=== PATIENT | female | born 1960 | race Caucasian/White ===

== ENCOUNTER 2017-06-01 13:57 | Emergency (ER) | payer OTHER ==
[2017-06-01 14:41] LABS: BASOPHILS % 0.9 (0.0-1.5); EOSINOPHILS % 2.3 % (0.0-6.8); MEAN CORPUSCULAR HEMOGLOBIN 26.9 pg (28.0-34.0); MEAN CORPUSCULAR VOLUME 83.8 fl (80.0-100.0); MONOCYTES % 4.7 % (0.0-11.0); NEUTROPHILS # 3.7 # k/uL (1.4-7.7)
[2017-06-01 14:58] LABS: eGFR (African) > 60; eGFR (Non-African) > 60
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
[2017-06-01] MEDS: IBUPROFEN 200 MG TABLET PO ONE (15:50)
[2017-06-01] MEDS: DEXAMETHASONE SOD PHOS 4 MG/ML VIAL IM ONE (15:50)
[2017-06-01 16:02] VITALS: BP 125/63
--- NOTE | 2017-06-01 16:55 | Diagnostic Imaging Report ---
[facility] [address] [address] Report Submission Date: Jun 01, 2017 3:01:37 PM CDT Patient Study Name: REGINE MONTILLA Date: Jun 01, 2017 2:37:08 PM CDT Modality Type: CR Gender: F Description: CHEST : 58 Institution: [facility] Physician: SABRA DAY - ER Examination: PA and lateral chest. History: Evaluate lung monahan. Comparison exam none available Findings: PA lateral chest demonstrate a normal cardiac silhouette. Mild tortuosity of thoracic aorta with vascular calcifications projecting over the aortic arch. Sternotomy wires. Chronic appearing interstitial changes. No focal infiltrate. No blunting of the costophrenic margins. Osseous structures are appropriate for age. Impression: Chronic appearing interstitial changes. No acute pulmonary process. Electronically signed on Jun 01, 2017 3:01:37 PM CDT by: Jamari JIMÉNEZ
--- NOTE | 2017-06-01 16:56 | Diagnostic Imaging Report ---
[facility] [address] [facility] [place], [place]. [address] Report Submission Date: Jun 01, 2017 3:15:45 PM CDT Patient Study Name: REGINE MONTILLA Date: Jun 01, 2017 2:34:01 PM CDT Modality Type: CT\SR Gender: F Description: CT BRAIN W/O CONTRAST : 58 Institution: [facility] Physician: SABRA DAY - TYESHA Examination: CT head without contrast History: Headache Comparison exam: None available for direct review Technique: Noncontrast head CT protocol. Findings: Ventricles and sulci are prominent. Cerebrocerebellar parenchyma demonstrates periventricular low attenuation consistent with small vessel disease. Region of low attenuation extending anteriorly from the left ventricle anterior horn. Mild bilateral anterior horn periventricular low attenuation. No evidence for parenchymal hemorrhage. No evidence for mass or mass effect. No midline shift. No extra axial fluid collections. Partial visualization of the paranasal sinuses, mastoid air cells, orbits, skull and scalp without gross regularity. Impression: Advanced age related changes. Regions of periventricular low attenuation consistent with ischemic events - exact chronicity indeterminate without older studies, though likely chronic. No hemorrhage. Correlation with previous examinations is recommended to help determine the exact chronicity of the parenchymal abnormalities. If prior studies do not become available and there still high clinical concern for an acute ischemic event, consider obtaining MRI. Electronically signed on Jun 01, 2017 3:15:45 PM CDT by: Jamari JIMÉNEZ
== END 2017-06-01 16:03 | disposition home or self-care (01) ==
LOC: EDSTATUS 13:57 → ED 13:57
DX: G43.809 Other migraine, not intractable, without status migrainosus (principal); R41.0 Disorientation, unspecified
CPT/HCPCS: 70450; 71020; 80053; 85025; 85610; 85730; 93005; J1100; 96372; 99283; S1016

== ENCOUNTER 2017-06-30 13:20 | Emergency (ER) | payer OTHER ==
--- NOTE | 2017-06-30 13:40 | ED Physician Documentation ---
Female Urogenital Problems - HISTORIAN Historian: patient - HPI Chief Complaint: Female Urogenital Problems Additional Information: 3 day history of dysuria, mild hematuria, having some urgency and frequency. No fever or chills noted. Is having constant pain in the suprapubic area. Onset: days ago (3 days) Severity: moderate - Associated Symptoms Urinary Symptoms: blood in urine, frequent urination, discomfort w/ urination, burning w/ urination, urgency w/ urination, pain w/ urination - ROS CONST: none. denies: fever, chills GI/: denies: nausea, vomiting - PAST HX Past History: other (CAD, Pelvic floor muscle spasms, ) Surgeries/Procedures: appendectomy, other (CABG of 3 vessles) Immunizations: referred to PCP Allergies/Adverse Reactions: Allergies Allergy/AdvReac Type Severity Reaction Status Date / Time strawberry Allergy Unknown Verified 06/30/17 13:50 bee venom (honey bee) Allergy Verified 06/30/17 13:50 Sulfa (Sulfonamide AdvReac Severe Anaphylaxis Verified 06/30/17 13:50 Antibiotics) contrast dye Allergy Unknown Uncoded 06/30/17 13:50 Home Medications: Ambulatory Orders Medication Instructions Recorded Albuterol Sulfate [Proair HFA] 1 each D 02/22/15 Aspirin [Polo] 81 mg D 02/22/15 Atorvastatin Calcium [Lipitor] 80 mg PO D 02/22/15 Clopidogrel Bisulfate [Plavix] 75 mg PO D 02/22/15 Nitroglycerin [Nitrostat] 0.4 mg PRN PRN 02/22/15 Oxybutynin Chloride [Ditropan] 10 mg PO BID 02/22/15 Venlafaxine HCl [Effexor Xr] 150 mg D 02/22/15 traZODone HCL [Desyrel] 150 mg PO HS 02/22/15 Hydroxyzine Pamoate [Vistaril] 25 mg PO QDAY 06/01/17 Naproxen [Naprosyn] 500 mg PO PRN 06/01/17 Pantoprazole Sodium [Protonix] 40 mg PO 0700 06/01/17 Trazodone HCl 50 mg PO TID #90 tablet 06/01/17 Venlafaxine HCl [Effexor Xr] 37.5 mg PO QDAY 06/01/17 Nitrofurantoin Monohyd/M-Cryst 100 mg PO CMEAL #10 capsule 06/30/17 [Macrobid] - SOCIAL HX Smoking History: quit greater than 1 year (quit 3 years ago, was smoking 1 1/2- 2 ppd) Alcohol Use: occasionally Drug Use: none - FAMILY HX Family History: none - VITAL SIGNS Vital Signs: Vital Signs Temp Pulse Resp BP Pulse Ox 125/63 06/01/17 16:01 Progress - Progress Progress: Patient was informed that her symptoms are very consistent with UTI however urine does not look that bad. Will get a urine culture and start antibiotics. Patient advised that if symptoms do not get better she needs to be further evaluated. Female Urogenital Problems - EXAM General Appearance: alert, mild distress Neck: nml inspection Respiratory: no resp. distress, breath sounds nml. No: wheezes, rales, rhonchi CVS: reg rate & rhythm, heart sounds normal, equal pulses, no murmur Abdomen: no organomegaly, no distention, nml bowel sounds, tenderness (mild tenderness in the RLL and suprapubic area). No: guarding, rebound, hepatomegaly Neuro: oriented X3, mood/affect nml, cognition normal Discharge Clincal Impression: Urinary tract infection Qualifiers: Urinary tract infection type: acute cystitis Hematuria presence: without hematuria Qualified Code(s): N30.00 - Acute cystitis without hematuria Referrals: Christiano Trinidad MD [Primary Care Provider] - 2 Days Additional Instructions: Drink a lot of fluids, Take MacroBid 100mg one tablet twice a day for 5 days . IF you start to run a high fever, have some increase pain or any other problems to return to the ED for further evaluation. Condition: Stable Disposition: 01 HOME, SELF-CARE Decision to Admit: NO Date of Decison to Admit: 06/30/17 Decision Time: 13:49
[2017-06-30 13:47] LABS: APPEARANCE,URINE CLEAR (CLEAR); COLOR,URINE ORANGE (YELLOW); OCCULT BLOOD,URINE TRACE-INTACT (NEGATIVE); UROBILINOGEN URINE 0.2 Eu (0.2-1.0)
[2017-06-30 13:50] VITALS: BP 119/72
== END 2017-06-30 14:15 | disposition home or self-care (01) ==
LOC: ED 13:20
DX: N30.00 Acute cystitis without hematuria (principal)
CPT/HCPCS: 81002; 87086; 99283

== ENCOUNTER 2017-12-24 13:28 | Emergency (ER) | payer OTHER ==
[2017-12-24] MEDS ORDERED: BUTORPHANOL TARTRATE 2 MG/ML VIAL IV ONE (14:03)
[2017-12-24] MEDS ORDERED: ONDANSETRON HCL/PF 4 MG/ 2ML VIAL IVP ONE (14:04)
--- NOTE | 2017-12-24 14:17 | ED Physician Documentation ---
General Adult - HISTORIAN Historian: patient, child - HPI Stated Complaint: LLQ pain Chief Complaint: General Adult Additional Information: LLQ pain that radiates to L flank began yesterday. Pain is intermittent and also waxes and wanes. Feels like previous kidney stones (15). - ROS CONST: denies: fever - PAST HX Past History: hypertension, other (kidney stones [id number]; 50+ pound unintentional weight loss since May w/ loss appetite and regurgitation/ vomiting) Other History: other (depression, Holt's esophagitis) Surgeries/Procedures: cardiac bypass (stwentsx3), other (appy, ortho) Allergies/Adverse Reactions: Allergies Allergy/AdvReac Type Severity Reaction Status Date / Time strawberry Allergy Unknown Verified 12/24/17 14:34 venom-honey bee Allergy Verified 12/24/17 14:34 [bee venom (honey bee)] Sulfa (Sulfonamide AdvReac Severe Anaphylaxis Verified 12/24/17 14:34 Antibiotics) contrast dye Allergy Unknown Uncoded 12/24/17 14:34 Home Medications: Ambulatory Orders Medication Instructions Recorded Albuterol Sulfate [Proair HFA] 1 each D 02/22/15 Aspirin [Polo] 81 mg D 02/22/15 Atorvastatin Calcium [Lipitor] 80 mg PO D 02/22/15 Clopidogrel Bisulfate [Plavix] 75 mg PO D 02/22/15 Nitroglycerin [Nitrostat] 0.4 mg PRN PRN 02/22/15 Oxybutynin Chloride [Ditropan] 10 mg PO BID 02/22/15 traZODone HCL [Desyrel] 150 mg PO HS 02/22/15 Hydroxyzine Pamoate [Vistaril] 25 mg PO QDAY 06/01/17 Naproxen [Naprosyn] 500 mg PO PRN 06/01/17 Pantoprazole Sodium [Protonix] 40 mg PO 0700 06/01/17 Trazodone HCl 50 mg PO TID #90 tablet 06/01/17 - SOCIAL HX Smoking History: non-smoker - FAMILY HX Family History: No - VITAL SIGNS Vital Signs: Vital Signs Temp Pulse Resp BP Pulse Ox 119/72 06/30/17 14:15 Progress - Progress Progress: Name: REGINE MONTILLA Date: Dec 24, 2017 2:28:43 PM CDT Modality Type: CT\SR Gender: F Description: CT ABD PELVIS W/O CO : 58 Institution: [facility] Physician: CHRISTIANO ROGERS - ER Examination: CT Abdomen/pelvis History: CT A/P W/O, LEFT SIDED FLANK AND LOWER ABDOMINAL PAIN X2 DAYS, WORSENING TODAY (Hx) Comparison exams: None available Technique: CT Abdomen/pelvis without contrast protocol. Findings: Renal cortical margins are symmetric. Small right calyceal calcification. 4 mm inferior calyx calcification left kidney. Mild dilation of the left ureter in its course through the abdomen and pelvis. No central calcification. Just within the bladder at the left ureterovesicular junction is a 4 mm calcification. Few smaller calcifications layering within the posterior margin of the bladder. No abnormal dilation of the right ureter. No central calcification. Bladder partially decompressed. Liver, spleen, adrenals, gallbladder and pancreas are without gross irregularity given exam technique. No gallstone. Abdominal aorta demonstrates peripheral atherosclerotic disease. No overt aneurysm. Cardiac silhouette not enlarged. No pericardial effusion. Vascular calcifications. Bowel unopacified limiting evaluation. No mesenteric inflammatory changes or free fluid. No abnormal bowel dilation. Stool within the large bowel. Sigmoid diverticula. Notation inflammation. Osseous structures demonstrate degenerative changes. Lung bases demonstrate bibasilar hazy infiltrates, left greater than right. No gross effusion. Impression: 4 mm calcification just within the bladder at the left ureterovesicular junction with residual dilation of the left ureter - likely representing recently passed ureterolithiasis. Bilateral nephrolithiasis. No acute upper abdominal organ inflammatory process. No abnormal bowel dilation. Sigmoid diverticulosis. No evidence for acute diverticulitis. No gallstone. Left greater than right lung base infiltrates without gross effusion. Electronically signed on Dec 24, 2017 3:04:48 PM CDT by: Jamari Bettencourt ED Results Lab/Radiology - Orders Orders: ED Orders Category Date Time Status Place IV Lock 1T Care 12/24/17 13:[address] ABD & PELVIS W/O CON Stat Exams 12/24/17 Ordered CBC/PLATELET/DIFF Routine Lab 12/24/17 Ordered CMP Routine Lab 12/24/17 Ordered URINALYSIS Routine Lab 12/24/17 Ordered Butorphanol Tartrate [Stadol] Med 12/24/17 14:03 Discontinued 2 mg IV NOW ONE Ondansetron HCl/Pf [Zofran 4 mg/2 ml] Med 12/24/17 14:04 Discontinued 4 mg IVP NOW ONE General Adult Physical Exam - PHYSICAL EXAM GENERAL APPEARANCE: no distress EENT: eye inspection normal (disconjugate positions), ENT inspection normal NECK: normal inspection, supple RESPIRATORY: no resp distress, breath sounds normal, other (well healed sternotomy scar) CVS: reg rate & rhythm, heart sounds normal ABDOMEN: soft, normal bowel sounds, no distension, non-tender BACK: normal inspection, no CVA tenderness, other (no vertebral tenderness) SKIN: warm/dry, normal color EXTREMITIES: non-tender, no evidence of injury NEURO: CN's nml as tested, motor nml, sensation nml Discharge Clincal Impression: Kidney stone on left side Referrals: Christiano Trinidad MD [Primary Care Provider] - 2 Days Additional Instructions: Drink plenty of water. Follow up with your provider as needed. Condition: Good Disposition: 01 HOME, SELF-CARE Decision to Admit: NO Decision Time: 15:10
[2017-12-24 14:34] VITALS: BP 138/71
[2017-12-24 15:06] LABS: BASOPHILS % 0.4 (0.0-1.5); MEAN CORPUSCULAR HEMOGLOBIN 27.5 pg (28.0-34.0); MEAN CORPUSCULAR VOLUME 88.3 fl (80.0-100.0)
[2017-12-24] MEDS ORDERED: KETOROLAC TROMETHAMINE 30 MG/1ML VIAL IVP ONE (15:08)
[2017-12-24 15:10] LABS: EOSINOPHILS % 0.6 % (0.0-6.8); MONOCYTES % 0.4 % (0.0-11.0); NEUTROPHILS # 4.1 # k/uL (1.4-7.7)
[2017-12-24] MEDS ORDERED: ORPHENADRINE CITRATE 60 MG/2ML ONE (15:14)
[2017-12-24] MEDS ORDERED: ORPHENADRINE CITRATE 60 MG/2ML IV ONE (15:17)
[2017-12-24 15:23] LABS: eGFR (African) > 60; eGFR (Non-African) > 60
--- NOTE | 2017-12-24 18:23 | Diagnostic Imaging Report ---
CHRISTIANO ROGERS [facility] [address] [facility] [address] [place], [place]. [address] Report Submission Date: Dec 24, 2017 3:04:48 PM CDT Patient Study Name: REGINE MONTILLA Date: Dec 24, 2017 2:28:43 PM CDT Modality Type: CT\SR Gender: F Description: CT ABD PELVIS W/O CO : 58 Institution: [facility] Physician: CHRISTIANO ROGERS Examination: CT Abdomen/pelvis History: CT A/P W/O, LEFT SIDED FLANK AND LOWER ABDOMINAL PAIN X2 DAYS, WORSENING TODAY (Hx) Comparison exams: None available Technique: CT Abdomen/pelvis without contrast protocol. Findings: Renal cortical margins are symmetric. Small right calyceal calcification. 4 mm inferior calyx calcification left kidney. Mild dilation of the left ureter in its course through the abdomen and pelvis. No central calcification. Just within the bladder at the left ureterovesicular junction is a 4 mm calcification. Few smaller calcifications layering within the posterior margin of the bladder. No abnormal dilation of the right ureter. No central calcification. Bladder partially decompressed. Liver, spleen, adrenals, gallbladder and pancreas are without gross irregularity given exam technique. No gallstone. Abdominal aorta demonstrates peripheral atherosclerotic disease. No overt aneurysm. Cardiac silhouette not enlarged. No pericardial effusion. Vascular calcifications. Bowel unopacified limiting evaluation. No mesenteric inflammatory changes or free fluid. No abnormal bowel dilation. Stool within the large bowel. Sigmoid diverticula. Notation inflammation. Osseous structures demonstrate degenerative changes. Lung bases demonstrate bibasilar hazy infiltrates, left greater than right. No gross effusion. Impression: 4 mm calcification just within the bladder at the left ureterovesicular junction with residual dilation of the left ureter - likely representing recently passed ureterolithiasis. Bilateral nephrolithiasis. No acute upper abdominal organ inflammatory process. No abnormal bowel dilation. Sigmoid diverticulosis. No evidence for acute diverticulitis. No gallstone. Left greater than right lung base infiltrates without gross effusion. Electronically signed on Dec 24, 2017 3:04:48 PM CDT by: Jamari JIMÉNEZ
== END 2017-12-24 15:20 | disposition home or self-care (01) ==
LOC: ED 13:28
DX: N20.0 Calculus of kidney (principal)
CPT/HCPCS: 74176; 80053; 85025; J0595; J2360; J2405; 96374; 96375; 99283; S1016

== ENCOUNTER 2018-01-15 13:19 | Emergency (ER) | payer OTHER ==
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
[2018-01-15 14:37] VITALS: BP 138/71
== END 2018-01-15 14:35 | disposition home or self-care (01) ==
LOC: ED 13:19
DX: M25.561 Pain in right knee (principal); S83.91XA Sprain of unspecified site of right knee, initial encounter; Z87.828 Personal history of other (healed) physical injury and trauma; X58.XXXA Exposure to other specified factors, initial encounter; Y92.9 Unspecified place or not applicable; Y93.9 Activity, unspecified; Y99.9 Unspecified external cause status
CPT/HCPCS: 99282

== ENCOUNTER 2018-03-20 11:16 | Emergency (ER) | payer OTHER ==
[2018-03-20 11:31] VITALS: BP 114/74
--- NOTE | 2018-03-20 11:37 | ED Physician Documentation ---
General Adult - HISTORIAN Historian: patient - HPI Stated Complaint: Right Sided Back Pain Chief Complaint: Flank Pain Onset: days ago (2) Timing: still present Severity: mild Further Comments: yes (She states she has had right CVA tenderness for a few days. No blood in urine. She has not tried any OTC meds. She does have some urinary urgency. No fever. no N/V/D.) Last known Well Code/Unknown Code: Unknown - ROS CONST: denies: fever, recent illness, weakness EYES/ENT: none CVS/RESP: none GI/: problems urinating. denies: vomiting, nausea MS/SKIN/LYMPH: denies: rash NEURO/PSYCH: denies: headache, fainting, dizziness - PAST HX Past History: other (depression ) Immunizations: referred to PCP Allergies/Adverse Reactions: Allergies Allergy/AdvReac Type Severity Reaction Status Date / Time strawberry Allergy Unknown Verified 03/20/18 11:31 venom-honey bee Allergy Verified 03/20/18 11:31 [bee venom (honey bee)] Sulfa (Sulfonamide AdvReac Severe Anaphylaxis Verified 03/20/18 11:31 Antibiotics) contrast dye Allergy Unknown Uncoded 03/20/18 11:31 Home Medications: Ambulatory Orders Medication Instructions Recorded Albuterol Sulfate [Proair HFA] 1 each IH Q6 PRN 02/22/15 Atorvastatin Calcium [Lipitor] 80 mg PO HS 02/22/15 Clopidogrel Bisulfate [Plavix] 75 mg PO HS 02/22/15 Nitroglycerin [Nitrostat] 0.4 mg PRN PRN 02/22/15 traZODone HCL [Desyrel] 150 mg PO HS 02/22/15 Pantoprazole Sodium [Protonix] 40 mg PO 0700 06/01/17 Acetaminophen [Tylenol] 500 mg PO PRN PRN 01/15/18 Hydroxyzine Pamoate [Vistaril] 50 mg PO HS 01/15/18 Oxybutynin Chloride [Ditropan] 5 mg PO BID 01/15/18 Quetiapine Fumarate [Seroquel] 1 tab PO HS 01/15/18 Sertraline HCl 100 mg PO AM 01/15/18 Topiramate 50 mg PO BID 01/15/18 - SOCIAL HX Smoking History: non-smoker Alcohol Use: none Drug Use: none - FAMILY HX Family History: No - VITAL SIGNS Vital Signs: Vital Signs Temp Pulse Resp BP Pulse Ox 96.5 F L 80 16 114/74 96 03/20/18 11:20 03/20/18 11:20 03/20/18 11:20 03/20/18 11:20 03/20/18 11:20 - REVIEWED ASSESSMENTS Nursing Assessment Reviewed: Yes Vitals Reviewed: Yes General Adult Physical Exam - PHYSICAL EXAM GENERAL APPEARANCE: no distress EENT: eye inspection normal, ENT inspection normal NECK: normal inspection RESPIRATORY: no resp distress, chest non-tender, breath sounds normal CVS: reg rate & rhythm, heart sounds normal, equal pulses, no murmur ABDOMEN: soft, normal bowel sounds, no distension, tenderness (bladder ) BACK: normal inspection, no CVA tenderness SKIN: warm/dry, normal color EXTREMITIES: non-tender, normal range of motion, no evidence of injury, no edema NEURO: oriented X3, CN's nml as tested, motor nml, sensation nml, mood/affect nml, cognition normal Discharge Clincal Impression: Urinary tract infection Qualifiers: Urinary tract infection type: site unspecified Hematuria presence: without hematuria Qualified Code(s): N39.0 - Urinary tract infection, site not specified Referrals: Christiano Trinidad MD [Primary Care Provider] - 2 Days Additional Instructions: 1. Take Tylenol or Ibuprofen as directed for back pain 2. Macrobid 100 mg BID x 10 days 3. Pyridim 100 mg Take 1 by mouth TID x 3 days 4. Increase water 5. No baths 6. Warm pack to back as needed 7. Follow up with PCP if no improvement in 2-4 days 8. Return to ER for concerns Condition: Stable Disposition: 01 HOME, SELF-CARE Decision to Admit: NO Date of Decison to Admit: 03/20/18 Decision Time: 11:48
[2018-03-20] MEDS ORDERED: IBUPROFEN 200 MG TABLET PO ONE ×2 (11:43→11:44)
[2018-03-21 01:11] LABS: APPEARANCE,URINE CLEAR (CLEAR); COLOR,URINE YELLOW (YELLOW); OCCULT BLOOD,URINE NEGATIVE (NEGATIVE); PH URINE 6.5 (5.0 - 8.0); UROBILINOGEN URINE 0.2 Eu (0.2-1.0)
== END 2018-03-20 11:50 | disposition home or self-care (01) ==
LOC: ED 11:16
DX: N39.0 Urinary tract infection, site not specified (principal)
CPT/HCPCS: 81002; 87086; 99283

== ENCOUNTER 2018-06-03 11:49 | Emergency (ER) | payer OTHER ==
[2018-06-03 12:39] LABS: eGFR (Non-African) > 60
[2018-06-03] MEDS: 0.9 % SODIUM CHLORIDE 1,000 ML IV ONE ×2 (12:52→15:30)
[2018-06-03] MEDS: ONDANSETRON HCL/PF 4 MG/ 2ML VIAL IVP ONE (12:52)
[2018-06-03] MEDS: KETOROLAC TROMETHAMINE 30 MG/1ML VIAL IVP ONE (12:52)
--- NOTE | 2018-06-03 12:52 | ED Physician Documentation ---
General Adult - HISTORIAN Historian: patient - HPI Stated Complaint: Possible kidney stone with pain to left flank Chief Complaint: General Adult Additional Information: "Twinges" left lower back pain began yesterday at about 1600 and got increasingly worse over night and this am. Pain waxes and wanes, comes in waves. Feels like pain associated with previous 18 kidney stones. Has been drinking more water. No other treatment attempted. No fever or dysuria. - ROS CONST: denies: fever - PAST HX Past History: other (kidney stones; depression) Surgeries/Procedures: , other (knee (patellectomy), right arm, nerve transplant) Allergies/Adverse Reactions: Allergies Allergy/AdvReac Type Severity Reaction Status Date / Time strawberry Allergy Unknown Verified 06/03/18 12:25 venom-honey bee Allergy Verified 06/03/18 12:25 [bee venom (honey bee)] Sulfa (Sulfonamide AdvReac Severe Anaphylaxis Verified 06/03/18 12:25 Antibiotics) contrast dye Allergy Unknown Uncoded 06/03/18 12:25 Home Medications: Ambulatory Orders Medication Instructions Recorded Albuterol Sulfate [Proair HFA] 1 each IH Q6 PRN 02/22/15 Atorvastatin Calcium [Lipitor] 80 mg PO HS 02/22/15 Clopidogrel Bisulfate [Plavix] 75 mg PO HS 02/22/15 Nitroglycerin [Nitrostat] 0.4 mg PRN PRN 02/22/15 traZODone HCL [Desyrel] 150 mg PO HS 02/22/15 Pantoprazole Sodium [Protonix] 40 mg PO BID 06/01/17 Oxybutynin Chloride [Ditropan] 5 mg PO BID 01/15/18 Sertraline HCl 100 mg PO AM 01/15/18 Fluticasone Propionate [Flonase] 50 mcg IH PRN PRN 06/03/18 Furosemide 20 mg PO AM 06/03/18 Isosorbide Mononitrate [Imdur] 30 mg PO D 06/03/18 Lamotrigine [Lamictal] 25 mg PO D 06/03/18 Loratadine 10 mg PO AM 06/03/18 Melatonin 10 mg PO D 06/03/18 Nitrofurantoin Monohyd/M-Cryst 100 mg PO Q12H #14 capsule 06/03/18 [Macrobid 100 mg Capsule] Olanzapine [Zyprexa] 5 mg PO D 06/03/18 Potassium Chloride 10 mg PO AM 06/03/18 - SOCIAL HX Smoking History: non-smoker - FAMILY HX Family History: Yes (pancreatic, thyroid, breast cancer) - VITAL SIGNS Vital Signs: Vital Signs Temp Pulse Resp BP Pulse Ox 67 14 107/46 97 06/03/18 11:50 06/03/18 11:50 06/03/18 11:50 06/03/18 11:50 - REVIEWED ASSESSMENTS Nursing Assessment Reviewed: Yes Vitals Reviewed: Yes Progress - Progress Progress: Report Submission Date: Jun 03, 2018 2:09:14 PM CDT Patient Study Name: REGINE MONTILLA Date: Jun 03, 2018 1:11:48 PM CDT Modality Type: CT\\SR Gender: F Description: CT ABD PELVIS W/O CO : 58 Institution: [facility] Physician: CHRISTIANO ROGERS CT abdomen and pelvis without contrast History: Bilateral flank pain History of renal stones Technique: Helically acquired images were obtained from the hemidiaphragms to the pelvic floor without IV contrast and comparison made with December 24, 2017. Findings: The liver, spleen, gallbladder, pancreas and adrenal glands are unremarkable. The hydronephrosis which was previously present involving the left kidney is no longer seen. The stone which was previously present involving the left kidney is also no longer seen. There is a subtle, small hypodensity anteriorly at the lower pole of the left kidney with Hounsfield units of 10 and measuring 6 mm. This lesion is somewhat small to characterize with certainty but likely represents a small cyst especially given the internal Hounsfield units. There is a 1 mm calyceal stone of the right kidney. There is no hydronephrosis. No ureteral stones are noted. There are round calcifications in the pelvis consistent with phleboliths which are unchanged since the prior study. A stone previously noted near the left UVJ is no longer present and no bladder stones are noted. The uterus and adnexa are within normal limits. Impression: The hydronephrosis which was previously present of the left kidney is no longer present. The stone previously noted at the left UVJ has resolved. Subtle small hypodensity lower pole left kidney, somewhat small to characterize with certainty but likely a small cyst. 1 mm calyceal stone of the right kidney. No hydronephrosis or hydroureter. No ureteral stones are noted. Electronically signed on Jun 03, 2018 2:09:14 PM CDT by: Shirin Francisco Addendum: Not mentioned in the initial report, there are low-attenuation cystic structures at the root of the mesentery just inferior to the pancreas which have not changed since November 2017. The conglomerate of low-density lesions measures approximately 4.2 x 2.2 cm in greatest dimension and lies directly adjacent to a jejunal loop. This finding is stable but nonspecific. These lesions could represent mesenteric cysts but could possibly represent a conglomerate of enlarged but stable lymph nodes.. PET/CT may be helpful to determine if there is any abnormal activity with regard to these structures. Otherwise, close follow-up would be recommended with additional CT in 4-6 months time. Addendum electronically signed by Roberto ED Results Lab/Radiology - Orders Orders: ED Orders Category Date Time Status Place IV Lock 1T Care 06/03/18 11:58 Active CBC REF Routine Lab 06/03/18 12:10 Received CMP Routine Lab 06/03/18 12:10 Received URINALYSIS Routine Lab 06/03/18 Ordered Ketorolac Tromethamine [Toradol] Med 06/03/18 12:31 Once 30 mg IVP NOW ONE NORMAL SALINE @ 500 MLS/HR ( 1000ml BOLUS) Med 06/03/18 12:31 Ordered 0.9 % Sodium Chloride [Normal Saline] 1,000 ml IV Q2H Ondansetron HCl/Pf [Zofran 4 mg/2 ml] Med 06/03/18 12:31 Once 4 mg IVP NOW ONE General Adult Physical Exam - PHYSICAL EXAM GENERAL APPEARANCE: mild distress EENT: eye inspection normal, pharynx normal NECK: normal inspection, supple (non tender) RESPIRATORY: no resp distress, breath sounds normal CVS: reg rate & rhythm, heart sounds normal, no murmur ABDOMEN: soft, normal bowel sounds, no distension, non-tender BACK: normal inspection, no CVA tenderness, other (no vertebral tenderness) SKIN: warm/dry, normal color EXTREMITIES: non-tender, no evidence of injury NEURO: CN's nml as tested, motor nml, sensation nml, cognition normal Discharge Clincal Impression: Urinary tract infection Qualifiers: Urinary tract infection type: acute cystitis Hematuria presence: without hematuria Qualified Code(s): N30.00 - Acute cystitis without hematuria Prescriptions: Nitrofurantoin Monohyd/M-Cryst [Macrobid 100 mg Capsule] 100 mg PO Q12H #14 capsule Referrals: Christiano Trinidad MD [Primary Care Provider] - 2 Days Additional Instructions: The radiologist recommends you have a CT scan of your abdomen and pelvis in 4-6 months to check on some lymph nodes. You have copies of your report from today's CT and you also have the CT images from November and from today to give the next radiologist. Condition: Fair Disposition: 01 HOME, SELF-CARE Decision to Admit: NO Decision Time: 14:54
[2018-06-03 13:22] LABS: BASO % 0.5 % (0.0-1.5); EOS % 1.9 % (0.0-6.8); LYMPH ABS # 1.69 thou/uL (0.60-4.00); MCH. 27.8 pg (28.0-34.0); MCV 87.2 fL (80.0-100.0); MONOCYTE % 3.8 % (0.0-11.0); MONOCYTE ABS # 0.28 thou/uL (0.00-0.90); PLATELET COUNT 291 thou/uL (130-400)
[2018-06-03] MEDS: MORPHINE SULFATE 10 MG/ML CARTRIDGE IVP ONE (13:25)
[2018-06-03 15:28] VITALS: BP 116/72
--- NOTE | 2018-06-03 19:52 | Diagnostic Imaging Report ---
CHRISTIANO ROGERS [facility] [address] [facility] [place] [address]. [id number] Report Submission Date: Jun 03, 2018 2:09:14 PM CDT Patient Study Name: REGINE MONTILLA Date: Jun 03, 2018 1:11:48 PM CDT Modality Type: CT\SR Gender: F Description: CT ABD PELVIS W/O CO : 58 Institution: [facility] Physician: CHRISTIANO ROGERS CT abdomen and pelvis without contrast History: Bilateral flank pain History of renal stones Technique: Helically acquired images were obtained from the hemidiaphragms to the pelvic floor without IV contrast and comparison made with December 24, 2017. Findings: The liver, spleen, gallbladder, pancreas and adrenal glands are unremarkable. The hydronephrosis which was previously present involving the left kidney is no longer seen. The stone which was previously present involving the left kidney is also no longer seen. There is a subtle, small hypodensity anteriorly at the lower pole of the left kidney with Hounsfield units of 10 and measuring 6 mm. This lesion is somewhat small to characterize with certainty but likely represents a small cyst especially given the internal Hounsfield units. There is a 1 mm calyceal stone of the right kidney. There is no hydronephrosis. No ureteral stones are noted. There are round calcifications in the pelvis consistent with phleboliths which are unchanged since the prior study. A stone previously noted near the left UVJ is no longer present and no bladder stones are noted. The uterus and adnexa are within normal limits. Impression: The hydronephrosis which was previously present of the left kidney is no longer present. The stone previously noted at the left UVJ has resolved. Subtle small hypodensity lower pole left kidney, somewhat small to characterize with certainty but likely a small cyst. 1 mm calyceal stone of the right kidney. No hydronephrosis or hydroureter. No ureteral stones are noted. Electronically signed on Jun 03, 2018 2:09:14 PM CDT by: Shirin Francisco Addendum: Not mentioned in the initial report, there are low-attenuation cystic structures at the root of the mesentery just inferior to the pancreas which have not changed since November 2017. The conglomerate of low-density lesions measures approximately 4.2 x 2.2 cm in greatest dimension and lies directly adjacent to a jejunal loop. This finding is stable but nonspecific. These lesions could represent mesenteric cysts but could possibly represent a conglomerate of enlarged but stable lymph nodes.. PET/CT may be helpful to determine if there is any abnormal activity with regard to these structures. Otherwise, close follow-up would be recommended with additional CT in 4-6 months time. Addendum electronically signed by Shirin Francisco on June 03, 2018 2:13:18 PM AVIST TINO
[2018-06-04 07:23] LABS: APPEARANCE,URINE CLOUDY (CLEAR); COLOR,URINE YELLOW (YELLOW); OCCULT BLOOD,URINE NEGATIVE (NEGATIVE); PH URINE 6.5 (5.0 - 8.0)
[2018-06-04 07:24] LABS: UROBILINOGEN URINE 0.2 Eu (0.2-1.0)
== END 2018-06-03 14:55 | disposition home or self-care (01) ==
LOC: ED 11:49
DX: N30.00 Acute cystitis without hematuria (principal); Z87.442 Personal history of urinary calculi
CPT/HCPCS: 74176; 80053; 85025; J1885; J2270; J2405; J7030; 81002; 87086; 96365; 96375; 99284; S1016

== ENCOUNTER 2018-08-22 15:42 | Emergency (ER) | payer OTHER ==
--- NOTE | 2018-08-22 16:13 | ED Physician Documentation ---
General Adult - HISTORIAN Historian: patient - HPI Stated Complaint: dizziness Chief Complaint: Dizziness Onset: days ago (2) Timing: still present Severity: mild Further Comments: yes (She states she has a history of migraines. She has had improvement to the point of no migraines for "while" she states and her 2 night ago she had what seemed to be a migraine. headache and a episode of 2 min blank stare. She also recently had the "stomach flu" She states she does not drink enough water. She states her dizziness has been 2-3 days. She got up to answer the phone this afternoon and spouse found her on the floor. Currently main complaint is pain on right rib area approx 4th. No weakness. No other pain) Last known Well Code/Unknown Code: Unknown - ROS CONST: recent illness ("GI bug" ) CVS/RESP: denies: chest pain, shortness of breath GI/: denies: abdominal pain, problems urinating, vomiting, nausea NEURO/PSYCH: headache (recently and history of migraines ) - PAST HX Past History: AMI Immunizations: UTD Allergies/Adverse Reactions: Allergies Allergy/AdvReac Type Severity Reaction Status Date / Time strawberry Allergy Unknown Verified 06/03/18 12:25 venom-honey bee Allergy Verified 06/03/18 12:25 [bee venom (honey bee)] Sulfa (Sulfonamide AdvReac Severe Anaphylaxis Verified 06/03/18 12:25 Antibiotics) contrast dye Allergy Unknown Uncoded 06/03/18 12:25 Home Medications: Ambulatory Orders Medication Instructions Recorded Albuterol Sulfate [Proair HFA] 1 each IH Q6 PRN 02/22/15 Atorvastatin Calcium [Lipitor] 80 mg PO HS 02/22/15 Clopidogrel Bisulfate [Plavix] 75 mg PO HS 02/22/15 Nitroglycerin [Nitrostat] 0.4 mg PRN PRN 02/22/15 traZODone HCL [Desyrel] 150 mg PO HS 02/22/15 Pantoprazole Sodium [Protonix] 40 mg PO BID 06/01/17 Oxybutynin Chloride [Ditropan] 5 mg PO BID 01/15/18 Sertraline HCl 100 mg PO AM 01/15/18 Fluticasone Propionate [Flonase] 50 mcg IH PRN PRN 06/03/18 Furosemide 20 mg PO AM 06/03/18 Isosorbide Mononitrate [Imdur] 30 mg PO D 06/03/18 Lamotrigine [Lamictal] 25 mg PO D 06/03/18 Loratadine 10 mg PO AM 06/03/18 Melatonin 10 mg PO D 06/03/18 Nitrofurantoin Monohyd/M-Cryst 100 mg PO Q12H #14 capsule 06/03/18 [Macrobid 100 mg Capsule] Olanzapine [Zyprexa] 5 mg PO D 06/03/18 Potassium Chloride 10 mg PO AM 06/03/18 - SOCIAL HX Smoking History: non-smoker Alcohol Use: none Drug Use: none - FAMILY HX Family History: No - VITAL SIGNS Vital Signs: Vital Signs Temp Pulse Resp BP Pulse Ox 116/72 06/03/18 15:05 - REVIEWED ASSESSMENTS Nursing Assessment Reviewed: Yes Vitals Reviewed: Yes Progress - Progress Progress: 1700: results discussed and plan. She and spouse agreeable DG 1710: Pt declined the toradol states it doesnt work for her so order was cancelled and Nubain ordered DG 1730: pain is improved and she is asking to go home DG ED Results Lab/Radiology - Radiology Radiology Impressions: TECHNIQUE: 5 mm contiguous axial images of the brain, noncontrast. FINDINGS: There is mild generalized renal atrophy. 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 Additional infarct noted the left frontal lobe. Left basal ganglia infarct is also noted. All of these appear chronic. There is no midline shift or mass effect. No acute intracranial hemorrhage. The calvarium is intact. IMPRESSION: No acute intracranial process. Old infarcts as above Electronically signed on Aug 22, 2018 4:50:59 PM [employer] SUPERVISOR by: Chan Fleming Clinical history: Right rib pain Findings: No displaced rib fractures are identified. The visualized lungs are clear. Impression: Negative Electronically signed on Aug 22, 2018 4:55:19 PM [employer] SUPERVISOR by: Chan Fleming General Adult Physical Exam - PHYSICAL EXAM GENERAL APPEARANCE: no distress EENT: eye inspection normal, ENT inspection normal (she is blind so following directions with eyes is CHELSY ), dry mucous membranes NECK: normal inspection RESPIRATORY: no resp distress, chest non-tender, breath sounds normal, other (pain with palpation to right side of rib cage approx 4-6 ribs ) CVS: reg rate & rhythm, heart sounds normal, equal pulses ABDOMEN: normal bowel sounds, no distension, non-tender BACK: normal inspection, no CVA tenderness SKIN: warm/dry, normal color EXTREMITIES: non-tender NEURO: oriented X3 Discharge Clincal Impression: Dizziness, Rib pain on right side Fall Qualifiers: Encounter type: initial encounter Qualified Code(s): W19.XXXA - Unspecified fall, initial encounter Referrals: Christiano Trinidad MD [Primary Care Provider] - 2 Days Additional Instructions: 1. Continue meds as prescribed 2. OTC meds as needed for pain 3. Focus on deep breathing 4. Increase fluid intake 5. Change position slowly 6. Follow up with PCP in 2-4 days 7. Return to ER for any concerns Condition: Stable Disposition: 01 HOME, SELF-CARE Decision to Admit: NO Date of Decison to Admit: 08/22/18 Decision Time: 17:39
[2018-08-22] MEDS ORDERED: 0.9 % SODIUM CHLORIDE 1,000 ML IV ONE (16:15)
--- NOTE | 2018-08-22 16:55 | Diagnostic Imaging Report ---
ALEXIS ROBERTSON [facility] [address] [facility] [address] [place], [place]. [address] Report Submission Date: Aug 22, 2018 4:50:59 PM APPEALS RN Patient Study Name: REGINE MONTILLA Date: Aug 22, 2018 4:31:55 PM APPEALS RN Modality Type: CT\SR Gender: F Description: CT BRAIN W/O CONTRAST : 58 Institution: [facility] Physician: ALEXIS ROBERTSON CT brain noncontrast CLINICAL HISTORY: 58/F ORDER STATES - CT BRAIN W/O CONTRAST - FALL AND DIZZINESS (Hx) / ITS.REASON fall and dizzness (DICOM Hx) TECHNIQUE: 5 mm contiguous axial images of the brain, noncontrast. FINDINGS: There is mild generalized renal atrophy. 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 Additional infarct noted the left frontal lobe. Left basal ganglia infarct is also noted. All of these appear chronic. There is no midline shift or mass effect. No acute intracranial hemorrhage. The calvarium is intact. IMPRESSION: No acute intracranial process. Old infarcts as above Electronically signed on Aug 22, 2018 4:50:59 PM APPEALS RN by: Chan JIMÉNEZ
--- NOTE | 2018-08-22 16:59 | Diagnostic Imaging Report ---
ALEXIS ROBERTSON [facility] [address] [facility] [address] [address] Report Submission Date: Aug 22, 2018 4:55:19 PM CYCLE CONSULTANT Patient Study Name: REGINE MONTILLA Date: Aug 22, 2018 4:34:39 PM CYCLE CONSULTANT Modality Type: DX Gender: F Description: CHEST : 58 Institution: [facility] Physician: ALEXIS ROBERTSON 4 views right ribs Clinical history: Right rib pain Findings: No displaced rib fractures are identified. The visualized lungs are clear. Impression: Negative Electronically signed on Aug 22, 2018 4:55:19 PM CYCLE CONSULTANT by: Chan JIMÉNEZ
[2018-08-22] MEDS ORDERED: KETOROLAC TROMETHAMINE 30 MG/1ML VIAL IVP ONE (17:03)
[2018-08-22] MEDS ORDERED: NALBUPHINE HCL 10 MG/1 ML IVP ONE (17:09)
[2018-08-22 17:59] VITALS: BP 125/70
[2018-08-23 07:03] LABS: eGFR (Non-African) > 60
[2018-08-23 07:04] LABS: BASOPHILS % 0.5 (0.0-1.5); EOSINOPHILS % 1.9 % (0.0-6.8); MEAN CORPUSCULAR HEMOGLOBIN 26.5 pg (28.0-34.0); MONOCYTES % 4.9 % (0.0-11.0); NEUTROPHILS # 5.9 # k/uL (1.4-7.7)
[2018-08-23 07:17] LABS: CANNABINOIDS NEGATIVE ng/mL (< 50); METHYLENEDIOXYMETHAMPHETAMINE NEGATIVE ng/mL (<500)
[2018-08-23 08:12] LABS: APPEARANCE,URINE CLEAR (CLEAR); COLOR,URINE YELLOW (YELLOW); OCCULT BLOOD,URINE NEGATIVE (NEGATIVE); URINE HCG NEGATIVE (NEGATIVE); UROBILINOGEN URINE 0.2 Eu (0.2-1.0)
== END 2018-08-22 17:57 | disposition home or self-care (01) ==
LOC: ED 15:42
DX: R42 Dizziness and giddiness (principal); R07.81 Pleurodynia; W19.XXXA Unspecified fall, initial encounter; Y93.89 Activity, other specified; Y92.009 Unspecified place in unspecified non-institutional (private) residence as the place of occurrence of the external cause
CPT/HCPCS: 70450; 71100; 80053; 80320; 80377; 81002; 81025; 84484; 85025; 93005; 96375; 99283; 99285; J2300; J7030; 96374; G0480; G0481; S1016

== ENCOUNTER 2018-12-09 15:26 | Emergency (ER) | payer OTHER ==
[2018-12-09 15:41] VITALS: BP 113/65
--- NOTE | 2018-12-09 15:52 | ED Physician Documentation ---
Hand Injury - HPI Stated Complaint: L wrist pain Chief Complaint: Upper Extremity Injury Onset: days ago (6) Where: home Severity: moderate Duration: persistent since Context: fall Location of Injury: L wrist Modifying Factors: pain on movement Further Comments: yes (she reports pain after a fall almost one week ago. She reports OTC meds dont help the pain. She has no other reported injuiries.) - ROS CONST: no problems - PAST HX Past History: other (depression ) Immunizations: UTD Allergies/Adverse Reactions: Allergies Allergy/AdvReac Type Severity Reaction Status Date / Time strawberry Allergy Unknown Verified 12/09/18 15:38 venom-honey bee Allergy Verified 12/09/18 15:38 [bee venom (honey bee)] Sulfa (Sulfonamide AdvReac Severe Anaphylaxis Verified 12/09/18 15:38 Antibiotics) contrast dye Allergy Unknown Uncoded 12/09/18 15:38 Home Medications: Ambulatory Orders Medication Instructions Recorded Albuterol Sulfate [Proair HFA] 1 each IH Q6 PRN 02/22/15 Atorvastatin Calcium [Lipitor] 80 mg PO HS 02/22/15 Clopidogrel Bisulfate [Plavix] 75 mg PO HS 02/22/15 Nitroglycerin [Nitrostat] 0.4 mg PRN PRN 02/22/15 traZODone HCL [Desyrel] 150 mg PO HS 02/22/15 Pantoprazole Sodium [Protonix] 40 mg PO BID 06/01/17 Oxybutynin Chloride [Ditropan] 5 mg PO BID 01/15/18 Sertraline HCl 200 mg PO AM 01/15/18 Fluticasone Propionate [Flonase] 50 mcg IH PRN PRN 06/03/18 Lamotrigine [Lamictal] 25 mg PO D 06/03/18 Loratadine 10 mg PO AM 06/03/18 Melatonin 10 mg PO D 06/03/18 Potassium Chloride 10 mg PO AM 06/03/18 - SOCIAL HX Smoking History: non-smoker Alcohol Use: none Drug Use: none - FAMILY HX Family History: none - VITAL SIGNS Vital Signs: Vital Signs Temp Pulse Resp BP Pulse Ox 97.6 F 92 H 16 113/65 97 12/09/18 15:30 12/09/18 15:30 12/09/18 15:30 12/09/18 15:30 12/09/18 15:30 - REVIEWED ASSESSMENTS Nursing Assessment Reviewed: Yes Vitals Reviewed: Yes ED Results Lab/Radiology - Radiology Radiology Impressions: Examination: Plain film right hand/wrist History: Hand and wrist discomfort Comparison exams: None available Findings: 3 views of the hand and wrist demonstrates osteopenia. Articular degenerative changes. No fracture. No dislocation. No soft tissue abnormality. Impression: Osteopenia and degenerative changes. No acute osseous abnormality Electronically signed on Dec 09, 2018 4:29:05 PM CDT by: Jamari Bettencourt Hand Injury Physical Exam - Exam General Appearance: no acute distress, alert Hand: nml inspection, no evidence of FB, bony tenderness, other (small bruise on wrist/hand area that is painful to touch. She has FROM. Pulses + sensation + and cap refill + ) Wrist: normal inspection Neuro: sensation nml Vascular: no vascular compromise Tendons: tendon function nml Forearm/Elbow/Arm: uninjured above wrist Neck/Back: nml inspection Resp/CVS: chest non-tender, breath sounds nml, heart sounds nml, no resp. d istress, lungs clear Abdomen: non-tender Discharge Clincal Impression: Left wrist pain Referrals: Christiano Trinidad MD [Primary Care Provider] - 2 Days Comments: 1. Continue OTC meds for pain 2. IF pain continues follow up with PCP 3. Ice for comfort 4. Return to ER for any increasing concerns Condition: Stable Disposition: 01 HOME, SELF-CARE Decision to Admit: NO Date of Decison to Admit: 12/09/18 Decision Time: 16:33
--- NOTE | 2018-12-11 06:28 | Diagnostic Imaging Report ---
ALEXIS ROBERTSON [facility] [address] [facility] [address] [address] [place], [place]. [address] Report Submission Date: Dec 09, 2018 4:29:05 PM CDT Patient Study Name: REGINE MONTILLA Date: Dec 09, 2018 3:55:20 PM CDT Modality Type: DX Gender: F Description: HAND 3 VIEWS OR MORE : 58 Institution: [facility] Physician: ALEXIS ROBERTSON Examination: Plain film right hand/wrist History: Hand and wrist discomfort Comparison exams: None available Findings: 3 views of the hand and wrist demonstrates osteopenia. Articular degenerative changes. No fracture. No dislocation. No soft tissue abnormality. Impression: Osteopenia and degenerative changes. No acute osseous abnormality Electronically signed on Dec 09, 2018 4:29:05 PM CDT by: Jamari JIMÉNEZ
== END 2018-12-09 17:00 | disposition home or self-care (01) ==
LOC: ED 15:26
DX: M25.532 Pain in left wrist (principal)
CPT/HCPCS: 73110; 73130; 99282; 99283